=== PATIENT | male | born 1945 | race Caucasian/White ===

== ENCOUNTER 2016-07-25 09:32 | Outpatient (CLI) | payer MEDICAID ==
[2016-07-25 12:35] LABS: #Basophils 0.1 thou/uL (0.0-0.2); #Eosinphils 0.9 thou/uL (0.0-0.7); #Lymphocytes 1.9 thou/uL (1.20-3.40); #Monocytes 0.6 thou/uL (0.11-0.59); #Neutrophils 2.5 thou/uL (1.40-6.50); %Basophils 1.5 % (0.0-1.0); %Eosinophils 15.2 % (0.0-10.0); %Lymphocytes 31.3 % (21.0-51.0); %Monocytes 10.6 % (0.0-10.0); Hematocrit 49.3 % (42.0-52.0); Mean Platelet Volume 6.8 fL (7.4-10.4); Red Blood Cell (RBC) Count 5.47 mill/uL (4.70-6.10)
[2016-07-25 12:50] LABS: ALT (SGPT) 22 U/L (0-55); AST (SGOT) 18 U/L (5-34); Alkaline Phosphatase 59 U/L (40-150); Anion Gap 17 mmol/L (10-20); BUN (Urea Nitrogen) 18 mg/dL (8.4-25.7); Bilirubin, Total 0.6 mg/dL (0.2-1.2); Calc. Creatinine Clearance 0 mL/min (70-130); Calcium 9.5 mg/dL (7.8-10.44); Carbon Dioxide 25 mmol/L (23-31); Chloride 97 mmol/L (98-107); Estimated GFR-MDRD 81; Globulin 3.1 g/dL (2.4-3.5); LDL Cholesterol, Calculated 192 mg/dL; Protein, Total 7.8 g/dL (5.8-8.1)
[2016-07-25 13:07] LABS: Bilirubin Negative (Negative); Blood, Urine Trace (Negative); Glucose, Urine (Dipstick) Negative (Negative); Ketone, Urine Negative (Negative); Nitrite Negative (Negative); Protein, Urine (Dipstick) Negative (Neg-Trace); Urobilinogen 0.2 mg/dL (0.2-1.0)
[2016-07-25 13:20] LABS: Bacteria/HPF None Seen HPF (None Seen); RBC/HPF 0-3 HPF (0-3); Squamous Epithelial 0-3 HPF (0-3); WBC/HPF None Seen HPF (0-3)
== END 2016-07-25 09:33 | disposition home or self-care (01) ==
LOC: NAVSJIPCSP 09:32
PROVIDERS: ATTEND Internal Medicine
DX: Z12.5 Encounter for screening for malignant neoplasm of prostate (principal); R53.83 Other fatigue; E78.5 Hyperlipidemia, unspecified; I11.9 Hypertensive heart disease without heart failure; Z79.899 Other long term (current) drug therapy
CPT/HCPCS: 36415; 80053; 80061; 81003; 81015; 84443; 85025; 86803; G0103

== ENCOUNTER 2017-01-07 10:07 | Outpatient (CLI) | payer MEDICARE, MEDICAID ==
[2017-01-07 14:24] LABS: Cardiac Risk 6.5 (Less than 4.5)
== END 2017-01-07 10:08 | disposition home or self-care (01) ==
LOC: NAVSJIPCSP 10:07
PROVIDERS: ATTEND Internal Medicine
DX: E78.5 Hyperlipidemia, unspecified (principal); Z79.899 Other long term (current) drug therapy
CPT/HCPCS: 36415; 80061

== ENCOUNTER 2019-08-06 10:27 | Outpatient (CLI) | payer MEDICARE, MEDICAID ==
[2019-08-06 11:19] LABS: ALT (SGPT) 25 U/L (8-55); AST (SGOT) 19 U/L (5-34); Albumin 4.6 g/dL (3.4-4.8); Alkaline Phosphatase 71 U/L (40-110); Anion Gap 15 mmol/L (10-20); BUN (Urea Nitrogen) 9 mg/dL (8.4-25.7); Bilirubin, Total 0.7 mg/dL (0.2-1.2); Calc. Creatinine Clearance 0 mL/min (70-130); Calcium 9.4 mg/dL (7.8-10.44); Carbon Dioxide 25 mmol/L (23-31); Cardiac Risk 5.1 (Less than 4.5); Chloride 94 mmol/L (98-107); Cholesterol 203 mg/dl (< 200 Desired); Estimated GFR-MDRD 72; Globulin 2.9 g/dL (2.4-3.5); Glucose 120 mg/dL (83-110); HDL Cholesterol 40 mg/dL (>60 Neg Risk); LDL Cholesterol, Calculated 127 mg/dL; Potassium 3.4 mmol/L (3.5-5.1); Protein, Total 7.5 g/dL (5.8-8.1); Sodium 131 mmol/L (136-145); Triglycerides 179 mg/dL (Less than 150)
== END 2019-08-06 10:28 | disposition home or self-care (01) ==
LOC: NAVSJIPCSP 10:27
PROVIDERS: ATTEND Nurse Practitioner Adult Health
DX: E78.5 Hyperlipidemia, unspecified (principal); I11.9 Hypertensive heart disease without heart failure
CPT/HCPCS: 36415; 80053; 80061

== ENCOUNTER 2020-01-18 09:46 | Emergency (ER) | payer MEDICARE, MEDICAID ==
[2020-01-18 10:34] LABS: #Basophils 0.1 thou/uL (0.0-0.2); #Eosinphils 0.4 thou/uL (0.0-0.7); #Lymphocytes 1.5 thou/uL (1.20-3.40); #Monocytes 1.1 thou/uL (0.11-0.59); %Eosinophils 3.7 % (0.0-10.0); %Lymphocytes 15.2 % (21.0-51.0); %Monocytes 11.2 % (0.0-10.0); %Neutrophils 68.8 % (42.0-75.0); Hemoglobin 16.8 g/dL (14.0-18.0); Mean Corpuscular HGB CONC 32.8 g/dL (32.0-36.0); Mean Corpuscular Hemoglobin 29.5 pg (27.0-31.0); Mean Corpuscular Volume 89.9 fL (78.0-98.0); Mean Platelet Volume 6.4 fL (7.4-10.4); Platelet Count 263 thou/uL (130-400); Red Blood Cell (RBC) Count 5.72 mill/uL (4.70-6.10); White Blood Cell (WBC) Count 10.1 thou/uL (4.8-10.8)
--- NOTE | 2020-01-18 10:46 | RAD ---
EXAM: 3 views of the left foot HISTORY: Foot pain and swelling after clipping toenails too short last week COMPARISON: None FINDINGS: 3 views of the left foot shows no evidence of acute fracture or dislocation. There is hyper trophy of the first metatarsal head. Mild soft tissue swelling is seen. Small osseous erosions are seen surrounding the DIP joint of the second toe. IMPRESSION: No evidence of acute osseous abnormality.
[2020-01-18 10:50] LABS: ALT (SGPT) 28 U/L (8-55); AST (SGOT) 21 U/L (5-34); Albumin 4.7 g/dL (3.4-4.8); Alkaline Phosphatase 74 U/L (40-110); Anion Gap 16 mmol/L (10-20); BUN (Urea Nitrogen) 13 mg/dL (8.4-25.7); Bilirubin, Total 0.9 mg/dL (0.2-1.2); Calc. Creatinine Clearance 0 mL/min (70-130); Calcium 9.8 mg/dL (7.8-10.44); Carbon Dioxide 26 mmol/L (23-31); Chloride 90 mmol/L (98-107); Estimated GFR-MDRD 72; Globulin 3.4 g/dL (2.4-3.5); Glucose 124 mg/dL (83-110); Potassium 3.3 mmol/L (3.5-5.1); Protein, Total 8.1 g/dL (5.8-8.1); Sodium 129 mmol/L (136-145)
[2020-01-18] MEDS ORDERED: Clindamycin 150 MG CAP ONE (11:29)
== END 2020-01-18 11:45 | disposition home or self-care (01) ==
LOC: NAV ERS 09:46
DX: L02.612 Cutaneous abscess of left foot (principal); L03.032 Cellulitis of left toe; E87.1 Hypo-osmolality and hyponatremia; E78.5 Hyperlipidemia, unspecified; I10 Essential (primary) hypertension; F17.220 Nicotine dependence, chewing tobacco, uncomplicated; Z79.899 Other long term (current) drug therapy; Z79.82 Long term (current) use of aspirin
CPT/HCPCS: 80053; 83605; 85025; 86140; 87070; 87077; 87186; 87205

== ENCOUNTER 2020-01-20 13:44 | Outpatient (CLI) | payer MEDICARE, MEDICAID ==
--- NOTE | 2020-01-20 15:33 | RAD ---
LEFT TOE 2 VIEWS: Date: 01/20/2020 HISTORY: Cellulitis of left second toe. COMPARISON: None. FINDINGS: There is soft tissue swelling along the distal phalanx of the second toe. Asymmetric erosions of the distal interphalangeal joint middle phalanx head and proximal phalanx base. Subcortical cysts are not ed with cartilage narrowing. IMPRESSION: Cellulitis distal phalanx of second toe with degenerative changes greater than any of the other inter phalangeal joints. Given the faint medial erosion of the distal phalanx base, underlying early osteom yelitis cannot be totally excluded and MRI recommended if clinically warranted. POS: AH
== END 2020-01-20 13:45 | disposition home or self-care (01) ==
LOC: NAV RAD 13:44
PROVIDERS: ATTEND Family Medicine
DX: L03.032 Cellulitis of left toe (principal); M19.072 Primary osteoarthritis, left ankle and foot

== ENCOUNTER 2021-04-28 14:40 | Outpatient (CLI) | payer MEDICARE, MEDICAID | END 2021-04-28 14:41 | disposition home or self-care (01) | LOC: NAV RAD 14:40 | PROVIDERS: ATTEND Family Medicine | DX: R05.9 Cough, unspecified (principal); R06.02 Shortness of breath | CPT/HCPCS: 71046 ==

== ENCOUNTER 2022-06-26 13:12 | Emergency (ER) | payer MEDICARE, MEDICAID | END 2022-06-26 14:26 | disposition home or self-care (01) | LOC: NAV ERS 13:12 | DX: S90.121A Contusion of right lesser toe(s) without damage to nail, initial encounter (principal); I10 Essential (primary) hypertension; W20.8XXA Other cause of strike by thrown, projected or falling object, initial encounter ==